=== PATIENT | male | born 1960 | race American Indian/Alaskan Native ===

== ENCOUNTER 2016-12-14 04:34 | Emergency (ER) | payer SELFPAY | END 2016-12-14 04:47 | disposition left against medical advice (07) | LOC: ED 04:34 | DX: Z04.1 Encounter for examination and observation following transport accident (principal); Z53.21 Procedure and treatment not carried out due to patient leaving prior to being seen by health care provider ==

== ENCOUNTER 2018-04-09 21:21 | Emergency (ER) | payer OTHER ==
[2018-04-09 22:16] LABS: Basophils # (Auto) 0.1 K/mm3 (0.0-0.1); Basophils % (Auto) 0.6 % (0.0-1.8); Eosinophils # (Auto) 0.4 K/mm3 (0.0-0.4); Eosinophils % (Auto) 4.3 % (0.0-4.3); Lymphocytes # (Auto) 3.7 K/mm3 (1.2-5.4); Lymphocytes % (Auto) 42.4 % (13.4-35.0); Mean Corpuscular HGB Conc 36 % (32-34); Mean Corpuscular Hemoglobin 33 pg (28-32); Mean Corpuscular Volume 91 fl (84-94); Monocytes # (Auto) 0.7 K/mm3 (0.0-0.8); Monocytes % (Auto) 7.8 % (0.0-7.3); Platelet Count 289 K/mm3 (140-440); Red Blood Count 4.59 M/mm3 (3.65-5.03); Red Cell Distribution Width 13.2 % (13.2-15.2)
[2018-04-09 22:26] LABS: Hematocrit 41.8 % (35.5-45.6); Hemoglobin 15.2 gm/dl (11.8-15.2)
[2018-04-09 22:27] LABS: BUN/Creatinine Ratio 12; Blood Urea Nitrogen 21 mg/dL (9-20); Calcium 9.4 mg/dL (8.4-10.2); Hemolysis Index 8
[2018-04-09 22:28] LABS: INR 0.93 (0.87-1.13)
[2018-04-09 22:29] LABS: Partial Thromboplastin Time 34.9 Sec. (24.2-36.6)
--- NOTE | 2018-04-09 22:50 | Cat Scan Report ---
FINAL REPORT PROCEDURE: CT HEAD/BRAIN WO CON TECHNIQUE: Computerized tomography of the head was performed without contrast material. HISTORY: neuro deficits < 6hrs or sx present upon awakening COMPARISON: No prior studies are available for comparison. FINDINGS: Skull and scalp: Normal. Paranasal sinuses: Mucosal thickening.. Ventricles and subarachnoid spaces: Mild dilatation. Cerebrum: No evidence of hemorrhage, acute infarction or mass. Mild atrophy. Right basal ganglia infarct. Cerebellum and brainstem: No evidence of hemorrhage, acute infarction or mass. Vasculature: Atherosclerotic calcifications. Comments: None. IMPRESSION: Involutional change with atrophy and previous right basal ganglia infarct
[2018-04-10] MEDS ORDERED: BABY ASPIRIN PO ONE (01:37)
[2018-04-10] MEDS ORDERED: CATAPRES PO ONE (01:37)
[2018-04-10 01:46] VITALS: BP 127/86
--- NOTE | 2018-04-10 02:00 | Emergency Department Report ---
HPI - General Chief Complaint: Neuro Symptoms/Deficit Time Seen by Provider: 04/10/18 01:00 - HPI HPI: The patient is a 58-year-old male who presents for evaluation of weakness. The patient reports left-sided facial and extremity weakness yesterday morning at 10 AM, nearly 24 hours ago. States that his symptoms were mild in severity and self resolved prior to arrival to the emergency department greater than 5 hours after symptom onset. The patient states that he feels completely back to his normal baseline and denies any current headache, neck pain, neck stiffness, vision or hearing changes, smell or taste changes, paresthesias, facial drooping , slurred speech, seizure-like activity, urine or bowel incontinence or retention, or other focal neurological deficit. ED Past Medical Hx - Past Medical History Hx Hypertension: Yes - Surgical History Additional Surgical History: Hernia repair - Social History Smoking Status: Never Smoker Substance Use Type: Alcohol - Medications Home Medications: Home Medications Medication Instructions Recorded Confirmed Last Taken Type Olmesartan/Amlodipin/Hcthiazid 1 tab PO DAILY 04/09/18 04/09/18 Unknown History [Tribenzor 40-10-25 mg Tablet] Aspirin [Aspirin BABY CHEW TAB] 81 mg PO QDAY #30 tab.chew 04/10/18 Unknown Rx ED Review of Systems ROS: Stated complaint: GENERAL WEAKNESS Other details as noted in HPI Constitutional: denies: fever ENT: denies: throat or neck pain Respiratory: denies: cough, shortness of breath Cardiovascular: denies: chest pain Endocrine: denies unexplained weight loss or gain Gastrointestinal: denies: abdominal pain, nausea Genitourinary: denies: dysuria Musculoskeletal: denies: leg swelling Skin: denies: rash Neurological: reports facial droop and left sided weakness denies: headache Hematological/Lymphatic: denies: easy bleeding or easy bruising Psych: denies sadness or hopelessness Physical Exam - Physical Exam Vital Signs: Vital Signs 04/09/18 04/10/18 21:19 01:15 Temperature 98.3 F 97.7 F Pulse Rate 101 H 85 Respiratory 18 16 Rate Blood Pressure 154/100 Blood Pressure 127/86 [Left] O2 Sat by Pulse 94 97 Oximetry Physical Exam: General: well-nourished, well-developed, no acute distress Head: Normocephalic, atraumatic Eyes: normal sclera ENT: Mucous membranes are pale and dry Neck: No neck stiffness, no cervical adenopathy Respiratory: Breath sounds equal bilaterally, no wheezing, rales, or rhonchi Cardio: S1 and S2 present, no murmurs, rubs, gallops, capillary refill is delayed Abdomen: Normoactive bowel sounds, soft abdomen, no rigidity, no guarding or rebound tenderness Musc: No pitting edema Skin: No rash Neuro:alert oriented x4, normal cognition, speech normal, PERRL, EOM intact, no facial drooping, no uvula or tongue deviation on protrusion, no deficit with rotation of neck or shoulder shrug, no obvious gross motor deficit in the upper or lower extremities with flexion or extension at the shoulder, elbow, wrist, hip, knee, or ankle bilaterally, no obvious gross sensation deficit to crude touch or 2 pt discrimination, 2+ symmetric reflexes on DTR testing, no coordination deficit with bhicfv-ba-ubap or sevr-ij-rvvv testing, Babinski downgoing, romberg negative, patient able to to ambulate without abnormal gait Psych: Normal affect ED Course Vital Signs 04/09/18 04/10/18 21:19 01:15 Temperature 98.3 F 97.7 F Pulse Rate 101 H 85 Respiratory 18 16 Rate Blood Pressure 154/100 Blood Pressure 127/86 [Left] O2 Sat by Pulse 94 97 Oximetry ED Medical Decision Making - Lab Data Result diagrams: 04/09/18 21:58 04/09/18 21:58 - Medical Decision Making The patient was seen and examined by myself. The patient is placed on a cafeteria monitor and continuous pulse ox. On initial evaluation, the patient was found to be in no distress. Evaluation orders were placed. The patient's neuro deficits were transient and completely resolved prior to my eval, consistent with TIA. The patient was given a tablet of aspirin for treatment of TIA and clonidine for txt of his htn. CT scan the head was obtained and was negative for acute intracranial disease process. Lab results are unremarkable. The patient was reevaluated and reported that their symptoms were markedly improved. The patient is stable for discharge with outpatient follow-up. The patient is given follow-up and return instructions. The patient expressed understanding and agreed with the plan. The patient is discharged in stable condition. Critical care attestation.: If time is entered above; I have spent that time in minutes in the direct care of this critically ill patient, excluding procedure time. ED Disposition Clinical Impression: Hypertensive urgency, TIA (transient ischemic attack) Disposition: DC-01 TO HOME OR SELFCARE Is pt being admited?: No Does the pt Need Aspirin: No Condition: Stable Instructions: Transient Ischemic Attack (ED), Hypertension (ED) Referrals: KARLO ARMENTA MD [Primary Care Provider] - 3-5 Days Time of Disposition: 01:55 - Assessment Assessment Interval: Baseline - Level of Consciousness 1a. Level of Consciousness: alert - LOC Questions 1b. LOC Questions: answers correctly - LOC Command 1c. LOC Commands: performs tasks correctly - Best Gaze 2. Best Gaze: normal - Visual 3. Visual: no visual loss - Facial Palsy 4. Facial Palsy: normal symmetrical movement - Motor Arm 5b. Motor Arm Right: no drift 5a. Motor Arm Left: no drift - Motor Leg 6a. Motor Leg Left: no drift 6b. Motor Leg Right: no drift - Limb Ataxia 7. Limb Ataxia: absent - Sensory 8. Sensory: normal - Best Language 9. Best Language: no aphasia - Dysarthria 10. Dysarthria: normal - Extinction and Inattention 11. Extinction/Inattention: no abnormality - Scoring Total Score: 0 Stroke Severity: No Stroke Symptoms
== END 2018-04-10 02:24 | disposition home or self-care (01) ==
LOC: ED 21:21
DX: I16.0 Hypertensive urgency (principal); G45.9 Transient cerebral ischemic attack, unspecified; I10 Essential (primary) hypertension
CPT/HCPCS: 36415; 70450; 80048; 84484; 85025; 85610; 85670; 85730; 93005; 93010

== ENCOUNTER 2018-10-07 09:02 | Emergency (ER) | payer SELFPAY ==
[2018-10-07] MEDS ORDERED: ZOFRAN IV ONE (09:29)
[2018-10-07] MEDS ORDERED: SUBLIMAZE IV ONE ×2 (09:29→13:07)
--- NOTE | 2018-10-07 09:37 | Emergency Department Report ---
HPI - General Chief Complaint: Extremity Injury, Lower Time Seen by Provider: 10/07/18 09:20 - HPI HPI: Room 7 The patient is a 58-year-old male presenting with a chief complaint of left calf pain. The patient says yesterday he was pushing a pallet down a ramp and he felt a pop in his left calf STATING he felt like someone struck him with something in the back of his leg. Patient states he went home and lip began swelling. Patient states the swelling increased this morning. Patient complains of pain in his left leg and gives it a score of 10/10 Location: Left calf Duration: [See above] Quality: Pain Severity: 10/10 Modifying factors: [see above] Context: [see above] Mode of transportation: [not driving] ED Past Medical Hx - Past Medical History Previous Medical History?: Yes Hx Hypertension: Yes - Surgical History Past Surgical History?: Yes Additional Surgical History: Hernia repair - Family History Family history: no significant - Social History Smoking Status: Never Smoker Substance Use Type: None (denies illicit drug use), Alcohol (occasional) - Medications Home Medications: Home Medications Medication Instructions Recorded Confirmed Last Taken Type Olmesartan/Amlodipin/Hcthiazid 1 tab PO DAILY 04/09/18 04/09/18 Unknown History [Tribenzor 40-10-25 mg Tablet] Aspirin [Aspirin BABY CHEW TAB] 81 mg PO QDAY #30 tab.chew 04/10/18 Unknown Rx Cyclobenzaprine [Flexeril] 10 mg PO TID PRN #20 tablet 10/07/18 Unknown Rx HYDROcodone/APAP 5-325 [[place] 1 - 2 each PO Q6HR PRN #20 tablet 10/07/18 Unknown Rx 5/325] Ibuprofen [Motrin 800 MG tab] 800 mg PO Q8HR PRN #20 tablet 10/07/18 Unknown Rx ED Review of Systems ROS: Stated complaint: POSS PULLED CALF MUSCLE/ SWOLLEN (L) LEG Other details as noted in HPI Constitutional: no symptoms reported Eyes: denies: eye pain ENT: denies: throat pain Respiratory: no symptoms reported Cardiovascular: denies: chest pain Endocrine: no symptoms reported Gastrointestinal: denies: abdominal pain Genitourinary: denies: dysuria Musculoskeletal: myalgia Skin: other (left lower extremity ecchymosis) Neurological: denies: headache Physical Exam - Physical Exam Vital Signs: Vital Signs 10/07/18 09:10 Temperature 98.6 F Pulse Rate 111 H Respiratory 22 Rate Blood Pressure 193/121 O2 Sat by Pulse 97 Oximetry Physical Exam: GENERAL: The patient is well-developed well-nourished male sitting in wheelchair appearing to be in mild discomfort. [] HEENT: Normocephalic. Atraumatic. Extraocular motions are intact. Patient has moist mucous membranes. NECK: Supple. Trachea midline CHEST/LUNGS: There is no respiratory distress noted. HEART/CARDIOVASCULAR: Regular. 2+ left DP ABDOMEN: There is no abdominal distention. SKIN: There is ecchymosis to the posterior region of the left leg near the popliteal fossa. There is gross edema of the left lower extremity from the knee to the toes. There is no diaphoresis. NEURO: The patient is awake, alert, and oriented. The patient is cooperative. The patient has no focal neurologic deficits. The patient has normal speech MUSCULOSKELETAL: Equivocal Camacho's test (foot does not move when the calf is squeezed, however the patient complains of intense pain) ED Course Vital Signs 10/07/18 09:10 Temperature 98.6 F Pulse Rate 111 H Respiratory 22 Rate Blood Pressure 193/121 O2 Sat by Pulse 97 Oximetry ED Medical Decision Making - Lab Data Result diagrams: 10/07/18 09:33 10/07/18 09:33 - Radiology Data Radiology results: report reviewed (left tib-fib x-ray), image reviewed (left tib-fib x-ray) interpreted by me: Left tib-fib x-ray-no acute fracture [facility] [address] [place] [address] XRay Report Signed Patient: ARNOLDO HUTTON JR MR#: [id number] : 1960 Acct:[id number] Age/Sex: 58 / M ADM Date: 10/07/18 Loc: ED Attending Dr: Ordering Physician: EVA SANDRA MD Date of Service: 10/07/18 Procedure(s): XR tibia fibula 2V LT Accession Number(s): [id number] cc: EVA SANDRA MD Fluoro Time In Minutes: FINAL REPORT EXAM: XR TIBIA FIBULA 2V LT HISTORY: pain, swelling TECHNIQUE: AP and lateral radiographs of the left tibia and fibula. PRIORS: None. FINDINGS: No fracture. No dislocation. Normal mineralization. There is soft tissue swelling surrounding the left tibia and fibula. Moderate degenerative changes of the left knee and ankle are seen. No bony erosion or periosteal reaction. No radiopaque foreign body. IMPRESSION: Soft tissue swelling of the left lower extremity. No acute osseous abnormality. Moderate osteoarthritis of the left knee and ankle. Transcribed By: MG Dictated By: BERTA LERMA MD Electronically Authenticated By: BERTA LERMA MD Signed Date/Time: 10/07/181152 DD/ 54 TD/TT: 10/07/181154 - Differential Diagnosis Achilles rupture, DVT, occult fracture Critical care attestation.: If time is entered above; I have spent that time in minutes in the direct care of this critically ill patient, excluding procedure time. ED Disposition Clinical Impression: Left leg pain, Achilles rupture, left Disposition: TO HOME OR SELFCARE Is pt being admited?: No Does the pt Need Aspirin: No Condition: Stable Additional Instructions: Return to the emergency department immediately should you develop worsening symptoms, fever, inability to tolerate food or liquid or any other concerns. Prescriptions: Cyclobenzaprine [Flexeril] 10 mg PO TID PRN #20 tablet PRN Reason: Muscle Spasm HYDROcodone/APAP 5-325 [[place] 5/325] 1 - 2 each PO Q6HR PRN #20 tablet PRN Reason: Pain Ibuprofen [Motrin 800 MG tab] 800 mg PO Q8HR PRN #20 tablet PRN Reason: Pain, Moderate (4-6) Referrals: PRIMARY MD GAUTAM [Primary Care Provider] - 3-5 Days HENOK MOJICA MD [Staff Physician] - [facility] (Dr. Mojica is an orthopedic surgeon. Please follow up in further evaluation) Time of Disposition: 16:28
[2018-10-07 10:02] LABS: Basophils # (Auto) 0.1 K/mm3 (0.0-0.1); Basophils % (Auto) 0.5 % (0.0-1.8); Eosinophils # (Auto) 0.1 K/mm3 (0.0-0.4); Eosinophils % (Auto) 1.3 % (0.0-4.3); Hematocrit 36.5 % (35.5-45.6); Hemoglobin 12.5 gm/dl (11.8-15.2); Lymphocytes # (Auto) 2.1 K/mm3 (1.2-5.4); Lymphocytes % (Auto) 19.3 % (13.4-35.0); Mean Corpuscular HGB Conc 34 % (32-34); Mean Corpuscular Volume 91 fl (84-94); Monocytes # (Auto) 0.9 K/mm3 (0.0-0.8); Monocytes % (Auto) 8.4 % (0.0-7.3); Platelet Count 285 K/mm3 (140-440); Red Blood Count 4.01 M/mm3 (3.65-5.03); Red Cell Distribution Width 12.2 % (13.2-15.2)
[2018-10-07 10:12] LABS: INR 1.03 (0.87-1.13)
[2018-10-07 10:13] LABS: Partial Thromboplastin Time 24.7 Sec. (24.2-36.6)
[2018-10-07 10:15] LABS: Calcium 8.4 mg/dL (8.4-10.2)
--- NOTE | 2018-10-07 11:53 | XRay Report ---
FINAL REPORT EXAM: XR TIBIA FIBULA 2V LT HISTORY: pain, swelling TECHNIQUE: AP and lateral radiographs of the left tibia and fibula. PRIORS: None. FINDINGS: No fracture. No dislocation. Normal mineralization. There is soft tissue swelling surrounding the left tibia and fibula. Moderate degenerative changes of the left knee and ankle are seen. No bony erosion or periosteal reaction. No radiopaque foreign body. IMPRESSION: Soft tissue swelling of the left lower extremity. No acute osseous abnormality. Moderate osteoarthritis of the left knee and ankle.
[2018-10-07] MEDS ORDERED: CATAPRES PO ONE (13:07)
--- NOTE | 2018-10-07 13:56 | Vascular Lab Report ---
FINAL REPORT EXAM: VL VENOUS DUPLEX LE LT HISTORY: pain/swelling TECHNIQUE: Venous duplex Doppler ultrasound of bilateral lower extremity. Grayscale, color flow and spectral waveform images were obtained. PRIORS: None. FINDINGS: There is no DVT identified. Flow is seen by color flow and spectral waveform images. There is appropr iate venous wall compression and augmentation. There is a 3.5 x 3.1 x 3.0 cm heterogeneous masslike area in the popliteal fossa. It is not well riddhi acterized but could be a hematoma. IMPRESSION: There is no evidence of DVT in either right or left lower extremity. In the left popliteal fossa there is a heterogeneous 3.5 x 3.1 x 3.0 cm masslike area. Although nonsp ecific, this could be a hematoma. Correlate clinically.
[2018-10-07] MEDS ORDERED: DILAUDID IV ONE (16:47)
[2018-10-07 17:33] VITALS: BP 158/106
== END 2018-10-07 17:32 | disposition home or self-care (01) ==
LOC: ED 09:02
DX: S86.012A Strain of left Achilles tendon, initial encounter (principal); W18.30XA Fall on same level, unspecified, initial encounter; Y93.89 Activity, other specified; Y92.89 Other specified places as the place of occurrence of the external cause; Y99.8 Other external cause status
CPT/HCPCS: 36415; 73590; 80048; 82550; 85025; 85610; 85730; 93971; 96374; 96375; 96376; 99285; J1170; J2405; J3010

== ENCOUNTER 2019-10-05 10:13 | Emergency (ER) | payer SELFPAY ==
[2019-10-05] MEDS ORDERED: SODIUM CHLORIDE 0.9% 1000 ML 1,000 ML IV ONE ×2 (13:02→14:24)
[2019-10-05] MEDS ORDERED: KETOROLAC 30 MG/1 ML INJ IV ONE (13:02)
--- NOTE | 2019-10-05 13:09 | Emergency Department Report ---
- General Chief Complaint: Upper Respiratory Infection Stated Complaint: HEADACHE/FEVER/SOB Time Seen by Provider: 10/05/19 13:01 Source: patient Mode of arrival: Wheelchair Limitations: No Limitations - History of Present Illness Initial Comments: 59 yo male with PMH of HTN . Reports fever, chills, productive cough, SOB, and fatigue symptoms started on Monday. Diarrhea x 10 yesterday, 2 episodes of loose stool today. Denies chest pain MD Complaint: fever, cough, sore throat -: Sudden, days(s) (4) Severity: moderate Quality: aching Consistency: constant Improves With: nothing Worsens With: nothing Associated Symptoms: fever, chills, myalgias, cough, shortness of breath. denies: chest pain, right sweats - Related Data Home Medications Medication Instructions Recorded Confirmed Last Taken Olmesartan/Amlodipin/Hcthiazid 1 tab PO DAILY 04/09/18 04/09/18 Unknown [Tribenzor 40-10-25 mg Tablet] Previous Rx's Medication Instructions Recorded Last Taken Type Aspirin [Aspirin BABY CHEW TAB] 81 mg PO QDAY #30 tab.chew 04/10/18 Unknown Rx Cyclobenzaprine [Flexeril] 10 mg PO TID PRN #20 tablet 10/07/18 Unknown Rx HYDROcodone/APAP 5-325 [[place] 1 - 2 each PO Q6HR PRN #20 tablet 10/07/18 Unknown Rx 5/325] Ibuprofen [Motrin 800 MG tab] 800 mg PO Q8HR PRN #20 tablet 10/07/18 Unknown Rx Oseltamivir [Tamiflu] 75 mg PO BID 5 Days #10 cap 10/05/19 Unknown Rx Allergies Allergy/AdvReac Type Severity Reaction Status Date / Time No Known Allergies Allergy Unverified 08/30/15 17:49 ED Review of Systems ROS: Stated complaint: HEADACHE/FEVER/SOB Other details as noted in HPI Comment: All other systems reviewed and negative Constitutional: chills, fever, malaise Eyes: denies: eye pain ED Past Medical Hx - Past Medical History Previous Medical History?: Yes Hx Hypertension: Yes - Surgical History Past Surgical History?: Yes Additional Surgical History: Hernia repair - Social History Smoking Status: Never Smoker Substance Use Type: None - Medications Home Medications: Home Medications Medication Instructions Recorded Confirmed Last Taken Type Olmesartan/Amlodipin/Hcthiazid 1 tab PO DAILY 04/09/18 04/09/18 Unknown History [Tribenzor 40-10-25 mg Tablet] Aspirin [Aspirin BABY CHEW TAB] 81 mg PO QDAY #30 tab.chew 04/10/18 Unknown Rx Cyclobenzaprine [Flexeril] 10 mg PO TID PRN #20 tablet 10/07/18 Unknown Rx HYDROcodone/APAP 5-325 [[place] 1 - 2 each PO Q6HR PRN #20 tablet 10/07/18 Unknown Rx 5/325] Ibuprofen [Motrin 800 MG tab] 800 mg PO Q8HR PRN #20 tablet 10/07/18 Unknown Rx Oseltamivir [Tamiflu] 75 mg PO BID 5 Days #10 cap 10/05/19 Unknown Rx ED Physical Exam - General Limitations: No Limitations ED Course Vital Signs 10/05/19 10/05/19 10:28 14:35 Temperature 100.2 F H 98.2 F Pulse Rate 95 H 75 Respiratory 16 14 Rate Blood Pressure 147/100 Blood Pressure 155/92 [Left] O2 Sat by Pulse 96 98 Oximetry - Reevaluation(s) Reevaluation #1: 10/05/19 18:25 Resting comfortably while in ER. ED Medical Decision Making - Lab Data Result diagrams: 10/05/19 13:27 10/05/19 16:15 - Radiology Data Radiology results: report reviewed chest xray FINDINGS: SUPPORT DEVICES: None. HEART / MEDIASTINUM: No significant abnormality. LUNGS / PLEURA: No significant pulmonary or pleural abnormality. No pneumothorax. ADDITIONAL FINDINGS: No significant additional findings. IMPRESSION: 1. No acute pulmonary or pleural disease - Medical Decision Making 59 yo male with c/o chills fever, body-aches malaise,diarrhea and cough x 2 days. Cxr no acute findings Rapid influenza A + Toradol 30 mg for myalgia 2 liters of NS given for hydration No diarrhea while in ER Discharge home to follow up with PCP RX for tamiflu given pt. condition is stable for discharge home Critical Care Time: No Critical care attestation.: If time is entered above; I have spent that time in minutes in the direct care of this critically ill patient, excluding procedure time. ED Disposition Clinical Impression: Influenza A Disposition: DC- TO HOME OR SELFCARE Is pt being admited?: No Does the pt Need Aspirin: No Condition: Stable Instructions: Influenza (ED) Additional Instructions: Rest increase oral hydration drink 6-8 glasses of water daily. Take advil or tylenol for pain or fever as prescribed by package insert. Take Tamiflu as prescribed. Prescriptions: Oseltamivir [Tamiflu] 75 mg PO BID 5 Days #10 cap Referrals: PRIMARY CARE, [Primary Care Provider] - 3-5 Days Time of Disposition: 18:10
--- NOTE | 2019-10-05 13:35 | XRay Report ---
CHEST 2 VIEWS INDICATION / CLINICAL INFORMATION: cough fever. COMPARISON: None available. FINDINGS: SUPPORT DEVICES: None. HEART / MEDIASTINUM: No significant abnormality. LUNGS / PLEURA: No significant pulmonary or pleural abnormality. No pneumothorax. ADDITIONAL FINDINGS: No significant additional findings. IMPRESSION: 1. No acute pulmonary or pleural disease. Signer Name: Gudelia Mixon MD Signed: 10/05/2019 1:31 PM Workstation Name: [id number]
[2019-10-05 13:52] LABS: Hematocrit 47.2 % (35.5-45.6); Hemoglobin 16.1 gm/dl (11.8-15.2); Mean Corpuscular HGB Conc 34 % (32-34); Mean Corpuscular Volume 91 fl (84-94); Platelet Count 208 K/mm3 (140-440); Red Blood Count 5.19 M/mm3 (3.65-5.03); Red Cell Distribution Width 13.2 % (13.2-15.2)
[2019-10-05 14:13] LABS: Albumin 3.9 g/dL (3.9-5); Calcium 8.5 mg/dL (8.4-10.2)
[2019-10-05 17:31] LABS: Calcium 7.8 mg/dL (8.4-10.2)
[2019-10-05 18:36] VITALS: BP 140/98
== END 2019-10-05 18:36 | disposition home or self-care (01) ==
LOC: ED 10:13
DX: J09.X2 Influenza due to identified novel influenza A virus with other respiratory manifestations (principal)
CPT/HCPCS: 36415; 71046; 80048; 80053; 85027; 87040; 87400; 99284; J1885; J7030

== ENCOUNTER 2020-11-05 22:33 | Emergency (ER) | payer SELFPAY ==
--- NOTE | 2020-11-05 23:12 | Event Note ---
ED Screening Note Date of service: 11/05/20 Time: 23:00 ED Screening Note: Patient is a 60-year-old -[place] male with a history of hypertension and BPH who presents to the ED with complaint of acute onset urinary retention for the last 8 hours. Patient states that he has not voided any urine for 8 hours and now has severe suprapubic pressure and unable to void urine. Patient states that the last time he had similar symptoms about a year ago he had to have indwelling Deal catheter. Patient denies fever, chills, cough, abdominal pain, nausea and vomiting, testicular pain, hematuria, bowel incontinence, low back pain, traumatic injury or diarrhea. This initial assessment/diagnostic orders/clinical plan/treatment(s) is/are subject to change based on patients health status, clinical progression and re- assessment by fellow clinical providers in the ED. Further treatment and workup at subsequent clinical providers discretion. Patient/guardian urged not to elope from the ED as their condition may be serious if not clinically assessed and managed. Initial orders include: CBC, CMP, UA, Deal catheter placement
[2020-11-05 23:37] LABS: Basophils % (Auto) 0.2 % (0.0-1.8); Hematocrit 49.7 % (35.5-45.6); Hemoglobin 16.7 gm/dl (11.8-15.2); Lymphocytes # (Auto) 1.1 K/mm3 (1.2-5.4); Mean Corpuscular HGB Conc 34 % (32-34); Mean Corpuscular Volume 93 fl (84-94); Monocytes # (Auto) 0.8 K/mm3 (0.0-0.8); Monocytes % (Auto) 6.1 % (0.0-7.3); Platelet Count 273 K/mm3 (140-440); Red Blood Count 5.36 M/mm3 (3.65-5.03); Red Cell Distribution Width 13.2 % (13.2-15.2)
[2020-11-05 23:51] LABS: Albumin 5.1 g/dL (3.9-5); Calcium 9.6 mg/dL (8.4-10.2)
--- NOTE | 2020-11-05 23:54 | Emergency Department Report ---
ED Male HPI - General Chief complaint: Abdominal Pain Stated complaint: UNABLE TO URINATE Time Seen by Provider: 11/05/20 23:44 Source: patient Mode of arrival: Stretcher Limitations: No Limitations - History of Present Illness Initial comments: Patient 60-year-old male presents emergency room with complaints of urinary retention. Patient has been going on for 5 hours. Patient states he is only urinating small amounts. Patient states he is having lower abdominal pain and fullness. Patient patient states is better with releasing a small amount of urine and rest. Patient states is worse with palpation and movement. Patient states he is severely uncomfortable. Patient states he has had this before approximately 6 years ago. Patient denies fever and chills. Patient denies chest pain or shortness of breath. Patient states he missed his blood pressure medications today. Patient states he has meds at home. Patient denies recent travel. Patient denies recent international travel. Patient denies exposure to the novel coronavirus. Patient denies sick contacts. Patient denies fever and chills. Patient denies cough. Patient denies diarrhea. Patient denies coming in contact with anybody with symptoms of the novel coronavirus. -: Sudden, hour(s) Severity: severe Severity scale (0 -10): 10 Quality: stabbing Consistency: constant Improves with: urination, rest Worsens with: palpation, movement urinary retention. denies: discharge, swelling, mass, rash, blood in urine, dysuria, fever, nausea/vomiting, incontinence - Related Data Sexually active: No Home Medications Medication Instructions Recorded Confirmed Last Taken Olmesartan/Amlodipin/Hcthiazid 1 tab PO DAILY 04/09/18 04/09/18 Unknown [Tribenzor 40-10-25 mg Tablet] Previous Rx's Medication Instructions Recorded Last Taken Type Aspirin [Aspirin BABY CHEW TAB] 81 mg PO QDAY #30 tab.chew 04/10/18 Unknown Rx Cyclobenzaprine [Flexeril] 10 mg PO TID PRN #20 tablet 10/07/18 Unknown Rx HYDROcodone/APAP 5-325 [[place] 1 - 2 each PO Q6HR PRN #20 tablet 10/07/18 Unknown Rx 5/325] Ibuprofen [Motrin 800 MG tab] 800 mg PO Q8HR PRN #20 tablet 10/07/18 Unknown Rx Oseltamivir [Tamiflu] 75 mg PO BID 5 Days #10 cap 10/05/19 Unknown Rx Ciprofloxacin HCl 500 mg PO BID 10 Days #20 tablet 11/06/20 Unknown Rx Tamsulosin [Flomax] 0.4 mg PO QDAY 10 Days #10 cap 11/06/20 Unknown Rx Allergies Allergy/AdvReac Type Severity Reaction Status Date / Time No Known Allergies Allergy Unverified 08/30/15 17:49 ED Review of Systems ROS: Stated complaint: UNABLE TO URINATE Other details as noted in HPI Constitutional: denies: chills, fever Eyes: denies: eye pain, eye discharge, vision change ENT: denies: ear pain, throat pain Respiratory: denies: cough, shortness of breath, wheezing Cardiovascular: denies: chest pain, palpitations Endocrine: no symptoms reported Gastrointestinal: denies: abdominal pain, nausea, diarrhea Genitourinary: as per HPI. denies: dysuria Musculoskeletal: denies: back pain, joint swelling, arthralgia Skin: denies: rash, lesions Neurological: denies: headache, weakness, paresthesias Psychiatric: denies: anxiety, depression Hematological/Lymphatic: denies: easy bleeding, easy bruising ED Past Medical Hx - Past Medical History Previous Medical History?: Yes Hx Hypertension: Yes Hx Renal Disease: Yes (CKD) - Surgical History Past Surgical History?: Yes Additional Surgical History: Hernia repair - Family History Family history: no significant - Social History Smoking Status: Never Smoker Substance Use Type: None - Medications Home Medications: Home Medications Medication Instructions Recorded Confirmed Last Taken Type Olmesartan/Amlodipin/Hcthiazid 1 tab PO DAILY 04/09/18 04/09/18 Unknown History [Tribenzor 40-10-25 mg Tablet] Aspirin [Aspirin BABY CHEW TAB] 81 mg PO QDAY #30 tab.chew 04/10/18 Unknown Rx Cyclobenzaprine [Flexeril] 10 mg PO TID PRN #20 tablet 10/07/18 Unknown Rx HYDROcodone/APAP 5-325 [[place] 1 - 2 each PO Q6HR PRN #20 tablet 10/07/18 Unknown Rx 5/325] Ibuprofen [Motrin 800 MG tab] 800 mg PO Q8HR PRN #20 tablet 10/07/18 Unknown Rx Oseltamivir [Tamiflu] 75 mg PO BID 5 Days #10 cap 10/05/19 Unknown Rx Ciprofloxacin HCl 500 mg PO BID 10 Days #20 tablet 11/06/20 Unknown Rx Tamsulosin [Flomax] 0.4 mg PO QDAY 10 Days #10 cap 11/06/20 Unknown Rx ED Physical Exam - General Limitations: No Limitations General appearance: alert, in no apparent distress - Head Head exam: Present: atraumatic, normocephalic - Eye Eye exam: Present: normal appearance - ENT ENT exam: Present: mucous membranes moist - Neck Neck exam: Present: normal inspection - Respiratory Respiratory exam: Present: normal lung sounds bilaterally. Absent: respiratory distress, wheezes, rales - Cardiovascular Cardiovascular Exam: Present: regular rate, normal rhythm. Absent: systolic murmur, diastolic murmur, rubs, gallop - GI/Abdominal GI/Abdominal exam: Present: soft, distended, tenderness, normal bowel sounds - Rectal Rectal exam: Present: deferred - Extremities Exam Extremities exam: Present: normal inspection - Back Exam Back exam: Present: normal inspection - Neurological Exam Neurological exam: Present: alert, oriented X3 - Psychiatric Psychiatric exam: Present: normal affect, normal mood - Skin Skin exam: Present: warm, dry, intact, normal color. Absent: rash ED Course Vital Signs 11/05/20 11/06/20 11/06/20 23:06 00:06 00:37 Temperature 98.6 F 98.4 F Pulse Rate 134 H 115 H Respiratory 18 20 18 Rate Blood Pressure 218/129 Blood Pressure 167/107 [Left] O2 Sat by Pulse 92 97 Oximetry - Reevaluation(s) Reevaluation #1: Patient had Deal placed. Patient states he is feeling much better. Patient had a big prescott of urine after the Deal was placed. 11/06/20 00:01 Reevaluation #2: Patient denies pain at this time. Patient states his pain has resolved. Patient states he is feeling much better. 11/06/20 00:26 Reevaluation #3: I discussed all results and clinical findings with patient. I discussed plan of care with patient. Patient agrees with plan of care. Patient is stable for discharge. Patient will be discharged home. Patient given discharge instructions. Patient voiced understanding of discharge instructions. 11/06/20 01:52 ED Medical Decision Making - Lab Data Result diagrams: 11/05/20 23:12 11/05/20 23:12 - Medical Decision Making Patient is a 60-year-old male that presents emergency room with complaints of urinary retention and urinating small amounts. Patient also complained of lower abdominal pain. Patient had a Deal placed and his pain completely resolved. Patient had labs done which were essentially unremarkable and consistent with chronic kidney disease. Patient has a history of chronic disease with his baseline creatinine of 1.8-2.2. Patient's creatinine today was 1.7.. Patient also found to have elevated blood pressure. Patient has his blood pressure medi cation today. Patient states he has blood pressure medications at home already. Patient's clinical findings are consistent with prostatitis and urinary retention. Patient will be given Cipro antibiotic orally. Patient also will be given Flomax. Patient instructed to follow-up with urologist and his primary care soon as possible. Patient is stable for discharge. Patient given discharge instructions. - Differential Diagnosis Urinary retention. Prostatitis, BPH, UTI, Critical care attestation.: If time is entered above; I have spent that time in minutes in the direct care of this critically ill patient, excluding procedure time. ED Disposition Clinical Impression: Urinary retention CKD (chronic kidney disease) Qualifiers: Chronic kidney disease stage: unspecified stage Qualified Code(s): N18.9 - Chronic kidney disease, unspecified Prostatitis Qualifiers: Prostatitis type: acute Qualified Code(s): N41.0 - Acute prostatitis Disposition: - TO HOME OR SELFCARE Is pt being admited?: No Does the pt Need Aspirin: No Condition: Stable Instructions: Food Basics for Chronic Kidney Disease, Chronic Kidney Disease, Adult, Acute Urinary Retention, Male, Prostatitis, [id number], Indwelling Urinary Catheter Care, Adult, [id number] Additional Instructions: Patient to follow-up with primary care in 2 to 3 days. Patient to follow-up with neurologist within 24 hours. Patient to leave Deal in until cleared by urologist. Patient to continue blood pressure medication. Patient to monitor blood pressure at home. Patient to keep a blood pressure log. Patient take blood pressure log to all follow-up appointments. Patient to eat a heart healthy and low-salt diet. Patient to eat a kidney diet. Patient to take blood pressure meds as previously prescribed. Patient to patient to rest. Patient to increase water. Patient to take Tylenol as needed for pain. Patient to take meds as directed. Patient to return to the ER if condition worsens, changes or new symptoms arise. Prescriptions: Ciprofloxacin HCl 500 mg PO BID 10 Days #20 tablet Tamsulosin [Flomax] 0.4 mg PO QDAY 10 Days #10 cap Referrals: PRIMARY CARE, [Primary Care Provider] - 2-3 Days JORDI MANN MD [Staff Physician] - 2-3 Days Time of Disposition: 01:52
[2020-11-06 01:33] LABS: Bacteria,Urine 1+ /HPF (Negative); Bilirubin,Urine NEG (Negative); Blood,Urine LG (Negative); Color,Urine Straw (Yellow); Urobilinogen,Urine < 2.0 mg/dL (<2.0); WBC,Urine < 1.0 /HPF (0.0-6.0)
[2020-11-06 02:13] VITALS: BP 164/101
== END 2020-11-06 02:13 | disposition home or self-care (01) ==
LOC: ED 22:33
DX: R33.9 Retention of urine, unspecified (principal); I12.9 Hypertensive chronic kidney disease with stage 1 through stage 4 chronic kidney disease, or unspecified chronic kidney disease; N18.9 Chronic kidney disease, unspecified; N41.0 Acute prostatitis; Z79.899 Other long term (current) drug therapy
CPT/HCPCS: 36415; 51702; 80053; 81001; 85025; 99283

== ENCOUNTER 2020-11-08 17:38 | Emergency (ER) | payer SELFPAY ==
--- NOTE | 2020-11-08 19:40 | Emergency Department Report ---
ED Male HPI - General Chief complaint: Urogenital-Male Stated complaint: REMOVE CATHETER Time Seen by Provider: 11/08/20 19:03 Source: patient Mode of arrival: Ambulatory Limitations: No Limitations - History of Present Illness Initial comments: Chief complaint: "I just want this catheter out." HPI: This is a 60-year-old male with history of BPH and urinary retention, hypertension, CKD who presents with Deal catheter in place. 3 years ago patient was diagnosed with BPH by urologist. He required urinary Deal catheter to be in place for 2 days. Once he started Flomax urinary retention was managed. He had recently stopped taking Flomax. He had acute urinary retention 3 days ago. He was treated at this facility. Dael catheter was placed. I reviewed electronic medical record: Patient had severely elevated blood pressure at that time. He admits to medication noncompliance. Creatinine was 1.7 at that time. BUN was 15. Patient denies discomfort. He desires catheter removal in order to increase his mobility. 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 He is unempoyed. He attempted to obtain urology follow up.. Due to lack of income and insurance, he was unsuccessful in obtaining outpatient care. MD Complaint: other (Catheter in place) -: days(s) (Treated for urinary retention 3 days ago) Severity: mild Improves with: none Worsens with: none new medication, indwelling catheter denies other symptoms - Related Data Home Medications Medication Instructions Recorded Confirmed Last Taken Olmesartan/Amlodipin/Hcthiazid 1 tab PO DAILY 04/09/18 04/09/18 Unknown [Tribenzor 40-10-25 mg Tablet] Previous Rx's Medication Instructions Recorded Last Taken Type Aspirin [Aspirin BABY CHEW TAB] 81 mg PO QDAY #30 tab.chew 04/10/18 Unknown Rx Cyclobenzaprine [Flexeril] 10 mg PO TID PRN #20 tablet 10/07/18 Unknown Rx HYDROcodone/APAP 5-325 [[place] 1 - 2 each PO Q6HR PRN #20 tablet 10/07/18 Unknown Rx 5/325] Ibuprofen [Motrin 800 MG tab] 800 mg PO Q8HR PRN #20 tablet 10/07/18 Unknown Rx Oseltamivir [Tamiflu] 75 mg PO BID 5 Days #10 cap 10/05/19 Unknown Rx Ciprofloxacin HCl 500 mg PO BID 10 Days #20 tablet 11/06/20 Unknown Rx Tamsulosin [Flomax] 0.4 mg PO QDAY 10 Days #10 cap 11/06/20 Unknown Rx amLODIPine 10 mg PO DAILY #90 tab 11/08/20 Unknown Rx lisinopriL [Lisinopril] 20 mg PO DAILY #90 tablet 11/08/20 Unknown Rx Allergies Allergy/AdvReac Type Severity Reaction Status Date / Time No Known Allergies Allergy Unverified 08/30/15 17:49 ED Review of Systems ROS: Stated complaint: REMOVE CATHETER Other details as noted in HPI Comment: All other systems reviewed and negative Respiratory: denies: cough, shortness of breath Gastrointestinal: denies: abdominal pain, nausea, vomiting Genitourinary: denies: urgency, dysuria, frequency, hematuria, discharge ED Past Medical Hx - Past Medical History Previous Medical History?: Yes Hx Hypertension: Yes Hx Renal Disease: Yes (CKD) Additional medical history: BPH - Surgical History Past Surgical History?: Yes Additional Surgical History: Hernia repair - Social History Smoking Status: Never Smoker Substance Use Type: Alcohol - Medications Home Medications: Home Medications Medication Instructions Recorded Confirmed Last Taken Type Olmesartan/Amlodipin/Hcthiazid 1 tab PO DAILY 04/09/18 04/09/18 Unknown History [Tribenzor 40-10-25 mg Tablet] Aspirin [Aspirin BABY CHEW TAB] 81 mg PO QDAY #30 tab.chew 04/10/18 Unknown Rx Cyclobenzaprine [Flexeril] 10 mg PO TID PRN #20 tablet 10/07/18 Unknown Rx HYDROcodone/APAP 5-325 [[place] 1 - 2 each PO Q6HR PRN #20 tablet 10/07/18 Unknown Rx 5/325] Ibuprofen [Motrin 800 MG tab] 800 mg PO Q8HR PRN #20 tablet 10/07/18 Unknown Rx Oseltamivir [Tamiflu] 75 mg PO BID 5 Days #10 cap 10/05/19 Unknown Rx Ciprofloxacin HCl 500 mg PO BID 10 Days #20 tablet 11/06/20 Unknown Rx Tamsulosin [Flomax] 0.4 mg PO QDAY 10 Days #10 cap 11/06/20 Unknown Rx amLODIPine 10 mg PO DAILY #90 tab 11/08/20 Unknown Rx lisinopriL [Lisinopril] 20 mg PO DAILY #90 tablet 11/08/20 Unknown Rx ED Physical Exam - General Limitations: No Limitations General appearance: alert, in no apparent distress - Head Head exam: Present: atraumatic, normocephalic - Eye Eye exam: Present: normal appearance - ENT ENT exam: Present: mucous membranes moist - Neck Neck exam: Present: normal inspection, full ROM - Respiratory Respiratory exam: Present: normal lung sounds bilaterally. Absent: respiratory distress, wheezes, rales - Cardiovascular Cardiovascular Exam: Present: regular rate, normal rhythm, normal heart sounds. Absent: systolic murmur, diastolic murmur, rubs, gallop - GI/Abdominal GI/Abdominal exam: Present: soft, normal bowel sounds. Absent: distended, tenderness, guarding, rebound - Rectal Rectal exam: Present: deferred - Extremities Exam Extremities exam: Present: normal inspection - Neurological Exam Neurological exam: Present: alert, oriented X3 - Psychiatric Psychiatric exam: Present: normal affect, normal mood - Skin Skin exam: Present: warm, dry, intact, normal color. Absent: rash ED Course Vital Signs 11/08/20 11/08/20 17:51 19:10 Temperature 98.1 F Pulse Rate 87 75 Respiratory 20 18 Rate Blood Pressure 248/201 Blood Pressure 235/132 [Left] O2 Sat by Pulse 97 98 Oximetry ED Medical Decision Making - Medical Decision Making 1. Deal catheter in place with urinary retention: Patient insisted on having Deal catheter removed. He understands the risk of onset of urinary retention, urethral stricture, emergent surgical intervention. Deal catheter was removed according to patient's wishes. 2. Hypertensive urgency due to medication noncompliance. Patient does not have evidence of endorgan damage on clinical exam. Patient was given p.o. medication in the emergency department. Also prescribed amlodipine lisinopril. I had extensive discussion with patient. He understands the risk of severe disease complications with untreated hypertension such as stroke heart attack blindness kidney disease erectile dysfunction Critical care attestation.: If time is entered above; I have spent that time in minutes in the direct care of this critically ill patient, excluding procedure time. ED Disposition Clinical Impression: Indwelling Deal catheter present, BPH (benign prostatic hyperplasia), Hypertensive urgency Disposition: DC- TO HOME OR SELFCARE Is pt being admited?: No Does the pt Need Aspirin: No Condition: Stable Instructions: Benign Prostatic Hyperplasia, Acute Urinary Retention, Male, Hypertension, Adult, [id number] Prescriptions: amLODIPine 10 mg PO DAILY #90 tab lisinopriL [Lisinopril] 20 mg PO DAILY #90 tablet Referrals: EFRAIN MARSHALL MD [Staff Physician] - 3-5 Days JORDI MANN MD [Staff Physician] - 3-5 Days
[2020-11-08] MEDS ORDERED: TAMSULOSIN 0.4 MG CAP PO ONE (22:17)
[2020-11-08] MEDS ORDERED: ETOMIDATE 20 MG/10 ML INJ IV ONE (22:55)
[2020-11-08] MEDS ORDERED: SUCCINYLCHOLINE CHLORIDE 200 MG/10 ML INJ MDV ONE (22:56)
[2020-11-09 00:52] LABS: BUN/Creatinine Ratio 14; Blood Urea Nitrogen 18 mg/dL (9-20); Calcium 9.1 mg/dL (8.4-10.2); Hemolysis Index 4
[2020-11-09] MEDS ORDERED: cloNIDine 0.2 MG TAB PO ONE (00:54)
[2020-11-09] MEDS ORDERED: LISINOPRIL 20 MG TAB PO ONE (00:54)
[2020-11-09 02:06] VITALS: BP 244/138
== END 2020-11-09 02:05 | disposition home or self-care (01) ==
LOC: ED 17:38
DX: N40.0 Benign prostatic hyperplasia without lower urinary tract symptoms (principal); I16.0 Hypertensive urgency; I12.9 Hypertensive chronic kidney disease with stage 1 through stage 4 chronic kidney disease, or unspecified chronic kidney disease; N18.9 Chronic kidney disease, unspecified; Z97.8 Presence of other specified devices; Z98.890 Other specified postprocedural states; Z79.899 Other long term (current) drug therapy
CPT/HCPCS: 36415; 80048; 96374; 96376; 99283; J0330

== ENCOUNTER 2022-04-12 07:16 | Emergency (ER) | payer SELFPAY | END 2022-04-12 13:59 | disposition left against medical advice (07) | LOC: ED 07:16 | DX: M25.439 Effusion, unspecified wrist (principal); Z53.21 Procedure and treatment not carried out due to patient leaving prior to being seen by health care provider ==

== ENCOUNTER 2022-04-14 15:01 | Emergency (ER) | payer SELFPAY ==
[2022-04-14 15:24] VITALS: BP 186/125
== END 2022-04-15 02:00 | disposition left against medical advice (07) ==
LOC: ED 15:01
DX: R22.32 Localized swelling, mass and lump, left upper limb (principal); Z53.21 Procedure and treatment not carried out due to patient leaving prior to being seen by health care provider